=== PATIENT | female | born 1940 | race African-American/Black ===

== ENCOUNTER → 2017-01-16 | Emergency (ER) | payer SELFPAY ==
[~2017-01-16] VITALS: Ht 157.5 cm; Wt 45.4 kg
[2017-01-16 14:03] VITALS: BP 169/105
--- NOTE | 2017-01-16 16:57 | Emergency Room Report ---
History of Present Illness General Chief Complaint: Abdominal Pain Present Illness Allergies: Coded Allergies: ERYTHROMYCIN BASE (Verified Allergy, Unknown, 01/16/17) Patient History Now: No Physical Exam Vital Signs Date Time Temp Pulse Resp B/P (MAP) Pulse Ox O2 Delivery O2 Flow Rate FiO2 01/16/17 14:03 98.4 94 18 169/105 99 Room Air Medical Decision Making Last Vital Signs Date Time Temp Pulse Resp B/P (MAP) Pulse Ox O2 Delivery O2 Flow Rate FiO2 01/16/17 14:03 98.4 94 18 169/105 99 Room Air Disposition: LEFT W/OUT BEING SEEN Referrals: NOT CHOSEN IPA/,REFERRING (PCP) TERRIE MAYNARD M.D. Jan 16, 2017 16:57
== END | disposition left against medical advice (07) ==
LOC: EDBD 14:09 → EMR 14:15
DX: R10.9 Unspecified abdominal pain (principal); Z88.1 Allergy status to other antibiotic agents; Z53.21 Procedure and treatment not carried out due to patient leaving prior to being seen by health care provider
CPT/HCPCS: 99281